=== PATIENT | male | born 1975 | race Caucasian/White ===

== ENCOUNTER 2017-07-02 15:47 | Emergency (ER) | payer BC ==
[~2017-07-02] VITALS: Wt 114.5 kg
[2017-07-02] MEDS ORDERED: NAPR-260 PO (17:37)
--- NOTE | 2017-07-02 19:17 | ERD ---
ER Documentation Chief Complaint Chief Complaint LEFT KNEE PAIN, INJURY 8 MONTHS AGO HPI This is a 42year-old male who presents the emergency department today complaining of some left knee pain and swelling. Patient states that 8 months ago he slipped on wet pavement in old sandals and had intermittent knee pain since that time. Patient states that he had x-rays that were negative at that time but did not get further evaluation. States that he feels like it is giving out on him. The fevers or chills. States he has not taken a medication for the pain because he does not like it. ROS All systems reviewed and are negative except as per history of present illness. Medications Home Meds Active Scripts Naproxen* (Naprosyn*) 500 Mg Tablet, 500 MG PO BID Y for PAIN AND/OR INFLAMMATION, #30 TAB Prov:QASIM MONACO PA-C 07/02/17 PMhx/Soc Medical and Surgical Hx: pt denies Medical Hx, pt denies Surgical Hx Hx Alcohol Use: No Hx Substance Use: No Hx Tobacco Use: No Smoking Status: Never smoker Physical Exam Vitals Vital Signs Date Time Temp Pulse Resp B/P Pulse Ox O2 Delivery O2 Flow Rate FiO2 07/02/17 15:51 97.5 98 17 144/89 98 Physical Exam Const: NAD Head: Atraumatic Eyes: Normal Conjunctiva ENT: Normal External Ears, Nose and Mouth. Neck: Full range of motion..~ No meningismus. Resp: Clear to auscultation bilaterally Cardio: Regular rate and rhythm, no murmurs Skin: No petechiae or rashes MSk: Left knee with no obvious deformity. Mild effusion. Full active range of motion. Tenderness palpation medial joint line. Pulses 2+. Distal neurovascularly intact. Neur: Awake and alert Psych: Normal Mood and Affect Procedures/MDM This 42-year-old male who presents the emergency department today complaining of intermittent left knee pain after a slip and fall approximately 8 months ago. Patient indicated that he had negative x-rays at that time but did not follow-up with a primary care doctor or environmental specialist. States that the last couple of days he felt like it is been giving out. I did offer to obtain new imaging for the patient however he has declined at this time. Patient states that he does not want any medication for pain either and he declined a knee immobilizer when I offered that to him that he has one at home.. 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 Patient was unsure of the process as to how to go about getting further evaluation for his knee and was seeking guidance.. He did indicate that he has a PPO insurance. Have explained to him that he may see any primary care doctor or environmental specialist of his choosing. Patient was given referral information for several orthopedic clinics. Patient was also given an Surinder wrap to help decrease the swelling. This patient for acute fracture dislocation. Patient has full active range of motion of his knee. Low suspicion for septic joint or gout especially given the mechanical symptoms. There is no erythema or warmth. Given a prescription for Naprosyn. At this time the patient is stable for discharge and outpatient management. Patient should follow up with their PCP in the next 1-2 days. They may return to the emergency department sooner for any persistent or worsening of symptoms. Patient understood and agreed with the plan. Departure Diagnosis: Primary Impression: Knee pain Chronicity: chronic Laterality: right Qualified Code: M25.561 - Chronic pain of right knee Condition: Fair Patient Instructions: Reducing Knee Pain and Swelling, Knee Pain, Uncertain Cause Referrals: your PCP [facility] Hours: Sun-Sun 9:00 AM - 5:00 PM Additional Instructions: Call your primary care doctor TOMORROW for an appointment during the next 1-2 days.See the doctor sooner or return here if your condition worsens before your appointment time. Appointment with primary care doctor or environmental specialist. Use knee immobilizer for support. Use Surinder wrap to help compression and decrease swelling. Apply ice to painful area. Take Naprosyn or Tylenol or Motrin for pain. QASIM MONACO PA-C Jul 02, 2017 19:17
== END 2017-07-02 17:55 | disposition home or self-care (01) ==
LOC: FTE 15:47
DX: M25.561 Pain in right knee (principal)
CPT/HCPCS: 99283